=== PATIENT | female | born 1975 | race Caucasian/White ===

== ENCOUNTER 2018-09-04 20:43 | Emergency (ER) | payer BC, OTHER ==
[2018-09-04 21:28] LABS: Absolute Monocytes 0.9 K/uL (0.1-1.3); Absolute Neutrophil 5.6 K/uL (1.8-8.0); Basophils % 1.4 % (0-1.3); Eosinophils % 1.7 % (0-4.4); Hematocrit 38.2 % (36.0-45.0); Lymphocytes % 30.7 % (15.3-44.8); MPV 10.3 fL (7.6-11.3); Monocytes % 9.1 % (3.3-12.3); RBC Red Blood Cell Count 4.07 M/uL (3.86-4.86)
[2018-09-04 22:07] LABS: Urine Blood NEGATIVE (NEG); Urine Glucose NEGATIVE (NEG); Urine Protein NEGATIVE (NEG)
[2018-09-04 22:13] LABS: ALT/SGPT 40 U/L (12-78); AST/SGOT 23 U/L (15-37); Alkaline Phosphatase 101 U/L (45-117); BUN Blood Urea Nitrogen 10 mg/dL (7-18); Bicarbonate 27 mmol/L (21-32); Bilirubin Direct < 0.1 mg/dL (0-0.2); Bilirubin Total 0.1 mg/dL (0.2-1.0); Glucose Level 92 mg/dL (74-106); Lipase 133 U/L (73-393); Potassium 3.6 mmol/L (3.5-5.1); Protein, Total 7.5 g/dL (6.4-8.2); Sodium Level 139 mmol/L (136-145)
--- NOTE | 2018-09-05 00:08 | ER ---
Nurse's Notes [facility] Name: Carol Cervantes Age: 43 yrs Sex: Female : 1975 Arrival Date: 09/04/2018 Time: 20:50 Bed 16 Private MD: Diagnosis: Unspecified abdominal pain;Vomiting Presentation: 09/04 20:53 Presenting complaint: Patient states: RLQ pain for 2 days that started mid abdomen and aj moved to RL. Denies fever. Transition of care: patient was not received from another setting of care. Onset of symptoms was September 02, 2018. Risk Assessment: Do you want to hurt yourself or someone else? Patient reports no desire to harm self or others. Initial Sepsis Screen: Does the patient meet any 2 criteria? No. Patient's initial sepsis screen is negative. Does the patient have a suspected source of infection? No. Patient's initial sepsis screen is negative. Care prior to arrival: None. 20:53 Method Of Arrival: Ambulatory aj 20:53 Acuity: AYUSH 3 aj Triage Assessment: 20:54 General: Appears in no apparent distress. comfortable, Behavior is calm, cooperative, aj appropriate for age. Pain: Complains of pain in right lower quadrant. Neuro: Level of Consciousness is awake, alert, obeys commands, Oriented to person, place, time, situation, Appropriate for age. Respiratory: Airway is patent Respiratory effort is even, unlabored, Respiratory pattern is regular, symmetrical. GI: Reports lower abdominal pain. Derm: Skin is intact, is healthy with good turgor, Skin is pink, warm \T\ dry. normal. 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 - Social history:: Smoking status: Patient/guardian denies using tobacco. - Ebola Screening: : No symptoms or risks identified at this time. Screenin:32 Abuse screen: Denies threats or abuse. Denies injuries from another. Nutritional lp1 screening: No deficits noted. Tuberculosis screening: No symptoms or risk factors identified. Fall Risk None identified. Assessment: 21:31 General: Appears in no apparent distress. Behavior is calm, cooperative, appropriate lp1 for age. Pain: Complains of pain in right lower quadrant Pain currently is 5 out of 10 on a pain scale. Quality of pain is described as aching. Neuro: Level of Consciousness is awake, alert, obeys commands, Oriented to person, place, time, situation. Cardiovascular: Patient's skin is warm and dry. Respiratory: Respiratory effort is even, unlabored. GI: Abdomen is non-distended, Bowel sounds present X 4 quads. Abdomen is tender to palpation in right lower quadrant Reports lower abdominal pain. : No signs and/or symptoms were reported regarding the genitourinary system. EENT: No signs and/or symptoms were reported regarding the EENT system. EENT:. Derm: Skin is pink, warm \T\ dry. Musculoskeletal: No deficits noted. 22:30 Reassessment: No changes from previously documented assessment. lp1 23:30 Reassessment: Patient appears in no apparent distress at this time. Patient and/or lp1 family updated on plan of care and expected duration. Pain level reassessed. Patient is alert, oriented x 3, equal unlabored respirations, skin warm/dry/pink. Vital Signs: 20:54 BP 159 / 88; Pulse 83; Resp 16; Temp 98.3; Pulse Ox 100% on R/A; Weight 81.19 kg; aj Height 5 ft. 7 in. (170.18 cm); 23:30 BP 140 / 87; Pulse 73; Resp 18; Pulse Ox 99% on R/A; lp1 20:54 Body Mass Index 28.04 (81.19 kg, 170.18 cm) ED Course: 20:50 Patient arrived in ED. 3 20:54 Triage completed. 20:54 Arm band placed on left wrist. 20:56 William Lew PA is PHCP. [facility] 20:56 Erwin Lester MD is Attending Physician. [facility] 21:07 Jennifer Cardona, EUGENE is Primary Nurse. lp1 21:15 Urine collected: clean catch specimen, clear. lp1 21:20 Inserted saline lock: 20 gauge in left antecubital area, using aseptic technique. Blood lp1 collected. 21:24 Radiology exam delayed due to lab results not completed at this time. (BUN/Creatinine). vm2 21:33 Patient has correct armband on for positive identification. lp1 21:34 No provider procedures requiring assistance completed. lp1 22:07 Radiology exam delayed due to lab results not completed at this time. (BUN/Creatinine). vm2 22:[address] darling 22:41 CT Abd/Pelvis - IV Contrast Only In Process Unspecified. EDMS 09/05 00:06 Kevin Guerra MD is Referral Physician. [facility] 00:17 IV discontinued, intact, bleeding controlled, No redness/swelling at site. Pressure ed1 dressing applied. Administered Medications: No medications were administered Outcome: 00:07 Discharge ordered by . [facility] 00:17 Discharged to home ambulatory. ed1 00:17 Condition: good 00:17 Discharge instructions given to patient, Instructed on discharge instructions, follow up and referral plans. Demonstrated understanding of instructions, follow-up care. 00:17 Patient left the ED. ed1 Signatures: Dispatcher [employer] EDMiesha Godoy, RN William Blancas PA PA jmm Riggs, Erika, RN RN ed1 Jennifer Cardona RN RN lp1 [place] Donnelly Victoria 2 Wlilow Durant 3
--- NOTE | 2018-09-05 00:08 | EDPHYS ---
Physician Documentation [facility] Name: Carol Cervantes Age: 43 yrs Sex: Female : 1975 Arrival Date: 09/04/2018 Time: 20:50 Bed 16 Private MD: ED Physician Erwin Lester HPI: 09/04 20:55 This 43 yrs old Female presents to ER via Ambulatory with complaints of jmm Abdominal Pain. 20:55 The patient presents with abdominal pain in the lower abdomen, right lower quadrant. jmm Onset: The symptoms/episode began/occurred gradually, 4 day(s) ago. Associated signs and symptoms: Pertinent positives: nausea and vomiting. The symptoms are described as achy. This is a 43 year old female with a history of bipolar that presents to the ED with complaints of right lower abdominal pain worsening over the past 2 days. Patient states having a episode of vomiting this past Saturday. Denies diarrhea. Denies recent travel. Denies infectious exposure. . 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 - Social history:: Smoking status: Patient/guardian denies using tobacco. - Ebola Screening: : No symptoms or risks identified at this time. ROS: 20:55 Constitutional: Negative for fever, chills, and weight loss, Cardiovascular: Negative jmm for chest pain, palpitations, and edema, Respiratory: Negative for shortness of breath, cough, wheezing, and pleuritic chest pain. 20:55 Abdomen/GI: Positive for abdominal pain, nausea and vomiting. 20:55 All other systems are negative. Exam: 20:55 Head/Face: atraumatic. Eyes: EOMI, no conjunctival erythema appreciated ENT: Moist jmm Mucus Membranes Neck: Trachea midline, Supple Chest/axilla: Normal chest wall appearance and motion. Cardiovascular: Regular rate and rhythm. No edema appreciated Respiratory: Normal respirations, no respiratory distress appreciated 20:55 Constitutional: The patient appears in no acute distress, alert, awake. 20:55 Abdomen/GI: Inspection: abdomen appears normal, Bowel sounds: normal, Palpation: soft, mild abdominal tenderness, in the right lower quadrant. 20:55 Back: CVA tenderness, is absent. 20:55 Musculoskeletal/extremity: ROM: intact in all extremities. 20:55 Skin: Appearance: Color: normal in color. 20:55 Neuro: Orientation: is normal, Mentation: is normal, Memory: is normal. 20:55 Psych: Behavior/mood is pleasant, cooperative. Vital Signs: 20:54 BP 159 / 88; Pulse 83; Resp 16; Temp 98.3; Pulse Ox 100% on R/A; Weight 81.19 kg; aj Height 5 ft. 7 in. (170.18 cm); 23:30 BP 140 / 87; Pulse 73; Resp 18; Pulse Ox 99% on R/A; lp1 20:54 Body Mass Index 28.04 (81.19 kg, 170.18 cm) aj MDM: 21:03 Patient medically screened. [facility] 09/05 00:05 Data reviewed: vital signs, nurses notes. Counseling: I had a detailed discussion with josue the patient and/or guardian regarding: the historical points, exam findings, and any diagnostic results supporting the discharge/admit diagnosis, radiology results, the need for outpatient follow up, to return to the emergency department if symptoms worsen or persist or if there are any questions or concerns that arise at home. ED course: Patient is alert and non toxic in appearance in the ED. Patient is advised to follow up with GI for further evaluation and otherwise advised to return to the ED if symptoms worsen. . 09/04 20:57 Order name: Basic Metabolic Panel; Complete Time: 22:17 [facility] 09/04 20:57 Order name: CBC with Diff; Complete Time: 21:31 [facility] 09/04 20:57 Order name: Creatinine for Radiology; Complete Time: 22:20 [facility] 09/04 20:57 Order name: Hepatic Function; Complete Time: 22:17 [facility] 09/04 20:57 Order name: Lipase; Complete Time: 22:17 [facility] 09/04 22:04 Order name: Urine Dipstick--Ancillary (enter results); Complete Time: 22:12 [facility] 09/04 20:57 Order name: IV Saline Lock; Complete Time: 21:34 [facility] 09/04 20:57 Order name: Labs collected and sent; Complete Time: 21:34 [facility] 09/04 20:57 Order name: Urine Dipstick-Ancillary (obtain specimen); Complete Time: 21:34 [facility] 09/04 20:57 Order name: Urine Test (obtain specimen); Complete Time: 21:34 [facility] 09/04 21:04 Order name: CT Abd/Pelvis - IV Contrast Only [facility] 09/04 22:04 Order name: Urine --Ancillary (enter results); Complete Time: 22:12 ar5 Administered Medications: No medications were administered Disposition: 09/05/18 00:07 Discharged to Home. Impression: Unspecified abdominal pain, Vomiting. - Condition is Stable. - Discharge Instructions: Abdominal Pain, Adult, Nausea and Vomiting, Adult. - Medication Reconciliation Form, Thank You Letter, Antibiotic Education, Prescription Opioid Use form. - Follow up: Kevin Guerra MD; When: 2 - 3 days; Reason: Recheck today's complaints, Continuance of care, Re-evaluation by your physician. Addendum: 09/09/2018 16:30 Co-signature as Attending Physician, Erwin Lester MD I agree with the assessment and t w4 plan of care. Signatures: Dispatcher [employer] EDMS Miesha Mckoy, RN RN William Willis PA PA [facility] Liv Carter, RN RN ed1 Jennifer Cardona RN RN lp1 Erwin Lester MD MD tw4 Corrections: (The following items were deleted from the chart) 09/05 00:17 00:07 09/05/2018 00:07 Discharged to Home. Impression: Unspecified abdominal pain; ed1 Vomiting. Condition is Stable. Forms are Medication Reconciliation Form, Thank You Letter, Antibiotic Education, Prescription Opioid Use. Follow up: Kevin Guerra; When: 2 - 3 days; Reason: Recheck today's complaints, Continuance of care, Re-evaluation by your physician. [facility]
--- NOTE | 2018-09-05 11:30 | RAD REPORT ---
EXAM DESCRIPTION: Abdomen Pelvis W Contrast CLINICAL HISTORY: Right lower abdominal pain COMPARISON: None. TECHNIQUE: CT ABDOMEN PELVIS WITH IV CONTRAST on 09/04/2018 9:04 PM CDT This exam was performed according to our departmental dose-optimization program, which includes autom ated exposure control, adjustment of the mA and/or kV according to patient size and/or use of iterati ve reconstruction technique. FINDINGS: Lower lungs are clear. Abdomen: The liver is normal in appearance. There is no biliary dilatation. Gallbladder is normal in appearance. The pancreas and spleen are normal in appearance. The adrenal glands and kidneys are unre markable. Abdominal aorta is normal in course and caliber without aneurysm. There is no free air. There is no r etroperitoneal adenopathy. Pelvis: There is no bowel obstruction. Urinary bladder is unremarkable. There is no free fluid. Uteru s is normal in size. Appendix is normal. Skeleton: There are bilateral L5 pars defects. IMPRESSION: No acute inflammatory process. No renal or ureteral calculi. Electronically signed by: Tate Jacobsen MD 09/04/2018 10:55 PM CDT Due to temporary technical issues with the PACS/Fluency reporting system, reports are being signed by the in house radiologist as a courtesy to ensure prompt reporting. The interpreting radiologist is f ully responsible for the content of the report.
== END 2018-09-05 00:17 | disposition home or self-care (01) ==
LOC: ER 20:43
DX: R10.31 Right lower quadrant pain (principal); R11.10 Vomiting, unspecified
CPT/HCPCS: 36415; 74177; 80048; 80076; 81003; 81025; 83690; 85025; 99284; Q9967